=== PATIENT | male | born 1970 | race Caucasian/White ===

== ENCOUNTER 2024-03-10 20:15 | Emergency (ER) | payer BC, OTHER ==
[~2024-03-10] VITALS: Ht 177.8 cm; Wt 109.0 kg
[2024-03-10 20:52] VITALS: O2SAT 92
[2024-03-10] MEDS: SODIUM CHLORIDE 0.9% 1,000 ML IV ONE (20:57)
[2024-03-10 21:07] LABS: Basophils # (auto) 0 10 ^3/uL (0-0.2); Basophils % (auto) 0.5 % (0.0-2.0); Eosinophils # (auto) 0.1 10 ^3/uL (0-0.8); Eosinophils % (auto) 1.8 % (0.0-7.0); Hematocrit 44.9 % (41.0-53.0); Hemoglobin 15.3 g/dL (13.5-17.5); Lymphocytes % (auto) 28.5 % (10.0-50.0); Mean Corpuscular Hemoglobin 29.6 pg (28.0-32.0); Mean Corpuscular Hgb Conc. 34.1 g/dL (32.0-36.0); Mean Corpuscular Volume 86.9 fL (80.0-100.0); Monocytes # (auto) 0.5 10 ^3/uL (0-1.3); Monocytes % (auto) 7.8 % (0.0-12.0); Neutrophils # (auto) 4.3 10 ^3/uL (1.6-8.6); Neutrophils % (auto) 61.4 % (37.0-80.0); Nucleated Red Blood Cells % 0.1 %; Platelet Count (auto) 236 10^3/uL (140-450); Red Blood Cells 5.17 10^6/uL (4.5-5.90)
[2024-03-10] MEDS: FAMOTIDINE (10MG/ML) 2ML VL IV ONE (21:10)
[2024-03-10] MEDS: KETOROLAC TROMETH 30 MG/ML 1ML VIAL IV ONE (21:11)
[2024-03-10] MEDS: ONDANSETRON HCL 4 MG/2 ML VIAL IV ONE (21:11)
[2024-03-10 21:28] LABS: Alanine Aminotransferase 73 U/L (7-40); Albumin 4.4 g/dL (3.2-4.8); Alkaline Phosphatase 87 U/L (46-116); Anion Gap 7 (5-15); Aspartate Aminotransferase 40 U/L (13-40); BUN/Creatinine Ratio 9.8 (10.0-20.0); Blood Urea Nitrogen 10 mg/dL (9-23); Calcium 9.5 mg/dL (8.7-10.4); Carbon Dioxide 24 mmol/L (20-31); Chloride 109 mmol/L (98-107); Glucose 150 mg/dL (74-106); Sodium 140 mmol/L (136-145)
[2024-03-10 21:29] LABS: Bilirubin, Total 0.6 mg/dL (0.2-1.0); Total Protein 7.1 g/dL (5.7-8.2)
[2024-03-10 21:50] LABS: COVID19 ANTIGEN SOFIA FIA NEGATIVE (NEGATIVE); Rapid Influenza A Negative (Negative); Rapid Influenza B Negative (Negative)
[2024-03-11 03:14] LABS: Urine Bacteria None Seen /hpf (None Seen); Urine WBC None Seen /hpf (0 - 3)
[2024-03-11 03:24] LABS: Urine Blood Negative /uL (Negative); Urine Clarity Clear (Clear); Urine Color Light-Yellow (Yellow); Urine Mucus FEW (None Seen); Urine Protein, UAD TRACE (Negative); Urine Specific Gravity 1.027 (1.001-1.035); Urine Urobilinogen Normal (Negative)
[2024-03-11 04:30] VITALS: BP 96/42; PULSE 57; RESP 11; O2SAT 99
== END 2024-03-11 05:34 | disposition home or self-care (01) ==
LOC: ER 20:15 → EEVIPCON 20:15 → ER 03-11 05:34
DX: B34.9 Viral infection, unspecified (principal); R53.1 Weakness; R42 Dizziness and giddiness; R23.1 Pallor; Z20.822 Contact with and (suspected) exposure to COVID-19
CPT/HCPCS: 36415; 71046; 80053; 81001; 83605; 84484; 85025; 87426; 87804; 93005; 96361; 96374; 96375; 99285; J1885; J2405; J3490; J7030

== ENCOUNTER 2024-05-15 06:12 | Emergency (ER) | payer BC ==
[~2024-05-15] VITALS: Ht 177.8 cm; Wt 115.8 kg
[2024-05-15 07:43] VITALS: BP 138/91; PULSE 99; RESP 20; TEMP 99.4; O2SAT 96
--- NOTE | 2024-05-15 07:45 | ED.PDOC ---
History of Present Illness HPI Comments 53 year male presents for URI symptoms. Onset 1 day ago C/o of green productive cough, chills, fever and fatigue Took Tylenol at 4 am Admits to sick contact Denies fevers chills night sweats unintentional weight loss Denies persistent chest pain, shortness of breath, leg swelling Denies history of asthma nor any breathing conditions Denies history of pneumonia Denies recent international travel Chief Complaint: Flu like Time Seen by MD: 06:48 Reviewed Notes: Nurses Notes Information Source: Patient Past Medical History Surgical History: Denies all surgeries Family History Family History: Unknown Social History Smoker: Non-Smoker Alcohol: Denies ETOH Use Drugs: Denies Drug Use Lives In: Home All Other Systems: Reviewed and Negative (Per HPI) Physical Exam General Appearance: No Apparent Distress, Normal HEENT: Normal ENT Inspection, Pharynx Normal, TMs Normal Neck: Full Range of Motion, Non-Tender, Normal, Normal Inspection Respiratory: Chest Non-Tender, Lungs Clear, No Accessory Muscle Use, No Respiratory Distress, Normal Breath Sounds Cardiovascular: No Edema, No JVD, No Murmur, No Gallop, Normal Peripheral Pulses, Regular Rate/Rhythm Breast Exam: Deferred Gastrointestinal: No Organomegaly, Non Tender, No Pulsatile Mass, Normal Bowel Sounds, Soft Genitalia: Deferred Pelvic: Deferred Rectal: Deferred Extremities: No calf tenderness, Normal capillary refill, Normal inspection, Normal range of motion, Non-tender, No pedal edema Musculoskeletal : Apperance: Normal 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 Was a procedure done?: No Fever Differential Dx Differential Diagnosis: Influenza, Viral Syndrome X-Ray, Labs, Meds, VS Vital Signs Date Time Temp Pulse Resp B/P (MAP) Pulse Ox O2 Delivery O2 Flow Rate FiO2 05/15/24 07:43 99.4 99 20 138/91 (107) 96 99.4 05/15/24 06:59 118 20 95 05/15/24 06:21 99.6 118 20 138/91 (107) 95 Lab Test 05/15/24 06:18 Range/Units Influenza Type A Antigen Negative Negative Influenza Type B Antigen Negative Negative SARS-CoV-2 Antigen (Rapid) Negative NEGATIVE Current Medications Medications (Trade) Dose Ordered Sig/Stevan Route Start Time Stop Time Status Last Admin Ibuprofen (Motrin Tablet) 600 mg ONCE ONCE PO 05/15/24 07:45 05/15/24 08:03 DC 05/15/24 08:05 X-Ray, Labs, Meds, VS Comment This is a pleasant male who presents with a chief complaint of URI symptoms consistent with a viral respiratory infection. On presentation the patient is afebrile. Patient is overall well-appearing nontoxic. Patient's x-ray not show any evidence of consolidation consistent with pneumonia. Influenza and COVID tests were obtained and findings were negative. After ROS and physical examination patient agreed to empiric treatment. Discussed that cough can linger up to 6 weeks after viral URI ED precautions if cough does not alleviate or if cough worsens Supportive care and return precautions discussed Counseled viral infection and explained that antibiotics would not be helpful in resolving the illness sooner. Recommended vitamin C, rest, handwashing, and symptomatic care. Expect 2-week course with possibly of cough lingering up to 6 weeks. Nonpharmacological remedies for fluids has been recommended as well On reevaluation, patient had symptomatic improvement. Patient is stable for discharge at this time. External notes reviewed. Test results and diagnostic imaging interpreted. All diagnostic findings, discharge care, education and instructions provided Follow-up with PCP in 2 to 3 days Patient verbalized understanding and agreed to treatment plan Vital signs stable, afebrile, no acute distress noted Patient ambulatory with strong steady gait Advised to return precautions for any new or worsening symptoms, return to ER immediately for re-evaluation Patient is aware that the purpose of this visit was for an acute medical emergency requiring emergent stabilization. Chronic conditions, including malignancies have not been ruled out. Patient is instructed to follow up with PCP as directed and discharge instructions for continued care and workup. If unable to arrange follow-up, patient is to return to the emergency department for reassessment. Patient (parent or legal guardian if applicable) was given verbal and written discharge instructions and acknowledges understanding. Time of 1ST Reevaluation: 08:30 Reevaluation 1ST: Improved Patient Education/Counseling: Diagnosis, Treatment Family Education/Counseling: Diagnosis, Treatment Departure 1 Departure Time of Disposition: 08:39 Impression: Primary Impression: Viral syndrome Disposition: 01 HOME / SELF CARE / HOMELESS Condition: Stable e-Prescriptions Promethazine-Dm (Promethazine Dm 6.25-15 mg/5Ml) 1 Yoanna Yoanna 5 ML PO TIDPRN PRN for 10 Days, #150 ML 0 Refills Prov: MATT CHARLES NP 05/15/24 Acetaminophen (Acetaminophen) 500 Mg Tab 500 MG PO Q6HP PRN for 10 Days, #40 TAB 0 Refills Prov: MATT CHARLES NP 05/15/24 Ibuprofen (Ibuprofen) 600 Mg Tab 1 TAB PO TID for 10 Days, #30 TAB 0 Refills Prov: MATT CHARLES NP 05/15/24 Amoxicillin & Pot Clavulanate (AUGMENTIN TABLET) 875 Mg Tb 875 MG PO BID for 7 Days, #14 TAB 0 Refills Prov: MATT CHARLES NP 05/15/24 Discharged With: Self Critical Care Note Critical Care Time?: No Stability Stability form required: No Heart Score Heart Score: Heart Score Response (Comments) Value History N/A 0 EKG N/A 0 Age N/A 0 Risk Factors N/A 0 Troponin N/A 0 Total 0 MATT CHARLES NP May 15, 2024 07:45
[2024-05-15 07:57] LABS: COVID19 ANTIGEN SOFIA FIA NEGATIVE (NEGATIVE); Rapid Influenza A Negative (Negative); Rapid Influenza B Negative (Negative)
[2024-05-15] MEDS: IBUPROFEN 600 MG TAB PO ONE (08:05)
--- NOTE | 2024-05-15 08:27 | DVH ---
XY CHEST TWO VIEWS ROUTINE, HISTORY: cough COMPARISON: XY CHEST TWO VIEWS ROUTINE on DOS: 03/10/24 XY CHEST TWO VIEWS ROUTINE on DOS: 03/10/24 TECHNICAL DATA: 2 view of the chest was obtained. FINDINGS: Lines and tubes: None Cardiomediastinal silhouette: normal Pulmonary vasculature: normal Lung expansion: normal Lung airspace: normal Lung interstitium: normal Pleura: normal Pneumothorax: no Bones: Unremarkable Other: no IMPRESSION: No acute intrathoracic abnormality.
[2024-05-15] MEDS ORDERED: AUG875T PO (08:41)
[2024-05-15] MEDS ORDERED: ACET500T58 PO (08:41)
[2024-05-15] MEDS ORDERED: IBUP-1454 PO (08:41)
[2024-05-15] MEDS ORDERED: PROM1SOL4 PO (08:41)
== END 2024-05-15 08:41 | disposition home or self-care (01) ==
LOC: EEVIPCON 06:12 → ER 06:12
DX: B34.9 Viral infection, unspecified (principal); Z20.822 Contact with and (suspected) exposure to COVID-19
CPT/HCPCS: 36415; 71046; 87426; 87804

== ENCOUNTER 2024-05-22 19:31 | Emergency (ER) | payer BC ==
[~2024-05-22] VITALS: Ht 177.8 cm; Wt 114.3 kg
[~2024-05-22 19:31] MED LIST: ACET500T58 PO; AUG875T PO; IBUP-1454 PO; PROM1SOL4 PO
[2024-05-22] MEDS: ALBUTEROL SULF 2.5 MG/0.5ML(0.5%) NEB SOLN NEB ONE (20:41)
[2024-05-22] MEDS: methylPREDNISolone SOD SUCC 125 MG/2 ML VL IM ONE (20:45)
--- NOTE | 2024-05-22 20:57 | DVH ---
EXAM: XY CHEST XRAY 1 VIEW CLINICAL HISTORY: cough TECHNIQUE: Single AP view of the chest WID: COMPARISON: None FINDINGS: Lines and tubes: None Chest: The heart size and pulmonary vasculature is within normal limits. No pleural effusion, pneumothorax, or consolidation. The osseous structures are grossly intact. IMPRESSION: No acute cardiopulmonary abnormality.
[2024-05-22] MEDS ORDERED: BACDST PO (21:06)
[2024-05-22] MEDS ORDERED: IBUP-1455 PO (21:06)
--- NOTE | 2024-05-22 21:06 | ED.PDOC ---
History of Present Illness HPI Comments 53-year-old male complaining of cough congestion headache. States it started approximate one week ago. He has been on antibiotics/the amoxicillin x4 days. Feels no significant improvement. Nothing makes it better, nothing makes it worse. No one else at home sick. Chief Complaint: Flu like Time Seen by MD: 19:55 Reviewed Notes: Nurses Notes Allergies: Coded Allergies: NO KNOWN ALLERGIES (Unverified , 03/10/24) Home Meds Active Scripts Promethazine-Dm (Promethazine Dm 6.25-15 mg/5Ml) 1 Yoanna Yoanna, 5 ML PO TIDPRN PRN for 10 Days, #150 ML 0 Refills Prov:MATT CHARLES NP 05/15/24 Acetaminophen (Acetaminophen) 500 Mg Tab, 500 MG PO Q6HP PRN for 10 Days, #40 TAB 0 Refills Prov:MATT CHARLES NP 05/15/24 Ibuprofen (Ibuprofen) 600 Mg Tab, 1 TAB PO TID for 10 Days, #30 TAB 0 Refills Prov:MATT CHARLES NP 05/15/24 Amoxicillin & Pot Clavulanate (AUGMENTIN TABLET) 875 Mg Tb, 875 MG PO BID for 7 Days, #14 TAB 0 Refills Prov:MATT CHARLES NP 05/15/24 Information Source: Patient Mode of Arrival: Ambulatory Past Medical History PAST MEDICAL HISTORY: Denies Surgical History: Denies all surgeries Family History Family History: Unknown Social History Smoker: Non-Smoker Alcohol: Denies ETOH Use Drugs: Denies Drug Use Lives In: Home Constitutional: reports: fever; denies: chills, diaphoresis, fatigue, malaise, sweats, weakness, others EENTM: denies: blurred vision, double vision, ear bleeding, ear discharge, ear drainage, ear pain, ear ringing, eye pain, eye redness, hearing loss, mouth pain, mouth swelling, nasal discharge, nose bleeding, nose congestion, nose pain, photophobia, tearing, throat pain, throat swelling, voice changes, others Respiratory: reports: cough; denies: hemoptysis, orthopnea, SOB at rest, shortness of breath, SOB with excertion, stridor, wheezing, others Cardiovascular: denies: chest pain, dizzy spells, diaphoresis, Dyspnea on exertion, edema, irregular heart beat, left arm pain, lightheadedness, pa lpitations, PND, syncope, others Gastrointestinal: denies: abdomen distended, abdominal pain, blood streaked bowels, constipated, diarrhea, dysphagia, difficulty swallowing, hematemesis, melena, nausea, poor appetite, poor fluid intake, rectal bleeding, rectal pain, vomiting, others Genitourinary: denies: burning, dysuria, flank pain, frequency, hematuria, incontinence, penile discharge, penile sore, pain, testicle pain, testicle swelling, urgency, others Neurological: denies: dizziness, fainting, headache, left sided numbness, left sided weakness, numbness, paresthesia, pre-existing deficit, right sided numbness, right sided weakness, seizure, speech problems, tingling, tremors, weakness, others Musculoskeletal: denies: back pain, gout, joint pain, joint swelling, muscle pain, muscle stiffness, neck pain, others Integumetry: denies: bruises, change in color, change in hair/nails, dryness, laceration, lesions, lumps, rash, wounds, others Allergic/Immunocompromised: denies: Difficulty Healing, Frequent Infections, Hives, Itching, others Hematologic/Lymphatic: denies: anemia, blood clots, easy bleeding, easy br uising, swollen glands, others Physical Exam General Appearance: No Apparent Distress, Normal HEENT: Normal ENT Inspection, Pharynx Normal, TMs Normal Neck: Full Range of Motion, Non-Tender, Normal, Normal Inspection Respiratory: Chest Non-Tender, Lungs Clear, No Accessory Muscle Use, No Respiratory Distress, Normal Breath Sounds Cardiovascular: No Edema, No JVD, No Murmur, No Gallop, Normal Peripheral Pulses, Regular Rate/Rhythm Breast Exam: Deferred Gastrointestinal: No Organomegaly, Non Tender, No Pulsatile Mass, Normal Bowel Sounds, Soft Genitalia: Deferred Pelvic: Deferred Rectal: Deferred Extremities: No calf tenderness, Normal capillary refill, Normal inspection, Normal range of motion, Non-tender, No pedal edema Musculoskeletal : Apperance: Normal Neurologic: Alert, 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 Was a procedure done?: No Differential Dx Considerations may include: URI, influenza, COVID, strep throat, pharyngitis, pneumonia X-Ray, Labs, Meds, VS Vital Signs Date Time Temp Pulse Resp B/P (MAP) Pulse Ox O2 Delivery O2 Flow Rate FiO2 05/22/24 19:58 98.0 102 18 147/76 (99) 94 Current Medications Medications (Trade) Dose Ordered Sig/Stevan Route Start Time Stop Time Status Last Admin Albuterol (Ventolin Medneb) 2.5 mg ONCE ONCE NEB 05/22/24 20:00 05/22/24 20:01 DC 05/22/24 20:41 Methylprednisolone Sodium Succinate (Solu Medrol) 125 mg ONCE ONCE IM 05/22/24 20:00 05/22/24 20:01 DC 05/22/24 20:45 X-Ray, Labs, Meds, VS Comment Imaging: X-rays and CT scans were reviewed and interpreted by this provider, imaging shows no fractures and no pathological disease. Pending radiology review. Laboratory: Labs reviewed and interpreted by this provider. No significant abnormalities noted. Patient has prior medical visits reviewed. Med reconciliation performed Vital signs reviewed Time of 1ST Reevaluation: 21:06 Reevaluation 1ST: Improved Patient Education/Counseling: Diagnosis, Treatment, Need For Follow Up (Patient advised to follow-up in the emergency room in the next 24 to 48 hours if symptoms do not improve. Advised follow-up with PCP in the next 3 to 5 days. Patient verbalized understanding. ) Family Education/Counseling: Diagnosis Departure 1 Departure Time of Disposition: 21:03 Impression: Primary Impression: Viral illness Disposition: HOME / SELF CARE / HOMELESS Condition: Fair e-Prescriptions Ibuprofen Micronized (Ibuprofen) 800 Mg Tab 800 MG PO TID PRN, #30 TAB Prov: JONELLE TERAN 05/22/24 Sulfamethoxazole W/Trimethopri (Bactrim Ds Tablet) 1 Tab Tb 1 TAB PO BID for 10 Days, #20 TAB Prov: JONELLE TERAN 05/22/24 Discharged With: Self Critical Care Note Critical Care Time?: No Stability Stability form required: No Heart Score Heart Score: Heart Score Response (Comments) Value History N/A 0 EKG N/A 0 Age N/A 0 Risk Factors N/A 0 Troponin N/A 0 Total 0 JONELLE TERAN May 22, 2024 21:06
[2024-05-22 21:43] VITALS: BP 147/76; PULSE 102; RESP 18; TEMP 98; O2SAT 94
== END 2024-05-22 21:47 | disposition home or self-care (01) ==
LOC: ER 19:31
DX: B34.9 Viral infection, unspecified (principal); Z79.1 Long term (current) use of non-steroidal anti-inflammatories (NSAID); Z79.899 Other long term (current) drug therapy
CPT/HCPCS: 71045; 94640; 96372; 99283; J2919